=== PATIENT | female | born 2000 | race Caucasian/White ===

== ENCOUNTER 2024-10-05 15:25 | Emergency (ER) | payer OTHER ==
[~2024-10-05] VITALS: Ht 157.5 cm; Wt 60.1 kg
[2024-10-05 15:35] VITALS: BP 121/53; PULSE 82; RESP 18; TEMP 97.6; O2SAT 98
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
== END 2024-10-05 16:57 | disposition home or self-care (01) ==
LOC: ER 15:26
DX: S05.91XA Unspecified injury of right eye and orbit, initial encounter (principal); X58.XXXA Exposure to other specified factors, initial encounter; Y93.89 Activity, other specified; Y92.89 Other specified places as the place of occurrence of the external cause; Y99.8 Other external cause status
CPT/HCPCS: 99282